=== PATIENT | male | born 1985 | race Two or more races ===

== ENCOUNTER 2017-02-24 03:55 | Emergency (ER) | payer SELFPAY ==
[~2017-02-24] VITALS: Ht 172.7 cm; Wt 109.8 kg
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
--- NOTE | 2017-02-24 04:45 | NUR ---
RADIOLOGY AT BEDSIDE FOR CXR
[2017-02-24 05:03] VITALS: BP 123/80
--- NOTE | 2017-02-24 05:04 | NUR ---
Patient discharged to home in stable condition. Written and verbal after care instructions given. Patient verbalizes understanding of instruction. PT ambulatory with a steady gait VITAL SIGNS WITHIN NORMAL LIMITS.
== END 2017-02-24 05:04 | disposition home or self-care (01) ==
LOC: ER 03:57
DX: R06.02 Shortness of breath (principal); F15.10 Other stimulant abuse, uncomplicated; F17.200 Nicotine dependence, unspecified, uncomplicated; Z71.6 Tobacco abuse counseling
CPT/HCPCS: 71010; 99283; 99406; A4606; Z7610